=== PATIENT | female | born 1970 | race Caucasian/White ===

== ENCOUNTER 2017-09-26 08:11 | Day surgery (SDC) | payer OTHER ==
[~2017-09-26 08:11] MED LIST: CEFAZOLIN 1 GM/50 ML (PMX) 50 ML IVPB; SOD CHLORIDE 0.9% 1,000 ML IV; SUCCINYLCHOLINE CHLORIDE 100 MG/5 ML SYG IV
[2017-09-26] MEDS ORDERED: LIDOCAINE 1% (MPF) 30 ML INJ (11:58)
[2017-09-26] MEDS ORDERED: BUPIVACAINE 0.25%/EPI (SDV) 30 ML INJ (11:58)
[2017-09-26] MEDS ORDERED: ALBUTEROL 0.083% (NEB) 2.5 MG/3 ML AMP (12:40)
[2017-09-26] MEDS ORDERED: MIDAZOLAM 1 MG/ML 2 ML INJ (12:40)
[2017-09-26] MEDS ORDERED: ROCURONIUM 50 MG INJ (12:40)
[2017-09-26] MEDS ORDERED: PROPOFOL 20 ML (12:40)
[2017-09-26] MEDS ORDERED: LIDOCAINE 1% (MDV) 20 ML INJ ×2 (12:40→12:46)
[2017-09-26] MEDS ORDERED: DEXAMETHASONE 4 MG/ML 1 ML INJ ×2 (12:45→13:20)
[2017-09-26] MEDS ORDERED: ROPIVACAINE 0.2% 20 ML VIAL (12:45)
[2017-09-26] MEDS ORDERED: ACETAMINOPHEN 1000MG/100ML IV 0 ML (13:19)
[2017-09-26] MEDS ORDERED: ONDANSETRON 4 MG INJ ×2 (13:20→14:36)
[2017-09-26] MEDS ORDERED: FAMOTIDINE 20 MG INJ (13:20)
[2017-09-26] MEDS ORDERED: SUGAMMADEX SODIUM 200 MG/2 ML VIAL IV (13:59)
[2017-09-26] MEDS: HYDROCODONE/APAP (5/325) TAB PO (14:40)
[2017-09-26] MEDS ORDERED: DIPHENHYDRAMINE 50 MG INJ IV (15:00)
[2017-09-26] MEDS: HYDROmorphONE 0.5 MG/0.5 ML SYG IV (15:30)
== END 2017-09-26 17:15 | disposition home or self-care (01) ==
LOC: SDS 08:11
DX: K81.1 Chronic cholecystitis (principal); J45.909 Unspecified asthma, uncomplicated
CPT/HCPCS: 47562; 84703; 88304

== ENCOUNTER 2017-09-29 18:29 | Emergency (ER) | payer OTHER ==
[2017-09-29] MEDS: ONDANSETRON 4 MG INJ IV (20:17)
[2017-09-29] MEDS: DIPHENHYDRAMINE 50 MG INJ IV (20:18)
[2017-09-29] MEDS: METOCLOPRAMIDE 10 MG INJ IV (20:18)
[2017-09-29] MEDS: SOD CHLORIDE 0.9% 1,000 ML IV ×2 (20:18→21:36)
[2017-09-29 20:28] LABS: ADD MAN DIFF? NO
[2017-09-29 20:29] LABS: BASOPHIL # 0.1 10^3/ul (0.0-0.1); BASOPHILS % 0.3 % (0.0-2.0); EOSINOPHILS # 0.2 10^3/ul (0.0-0.5); EOSINOPHILS % 1.2 % (0.0-7.0); HEMATOCRIT 39.8 % (37.0-47.0); HEMOGLOBIN 13.4 g/dl (12.0-16.0); LYMPHOCYTES % 12.2 % (15.0-51.0); MEAN CORPUSCULAR HEMOGLOBIN 28.5 pg (29.0-33.0); MEAN CORPUSCULAR HGB CONC 33.7 g/dl (32.0-37.0); MEAN CORPUSCULAR VOLUME 84.7 fl (82.0-101.0); MEAN PLATELET VOLUME 8.5 fl (7.4-10.4); MONOCYTE # 0.7 10^3/ul (0.3-0.9); MONOCYTES % 4.6 % (0.0-11.0); NEUTROPHIL # 13.1 10^3/ul (1.6-7.5); NEUTROPHILS % 81.1 % (39.0-77.0); PLATELET COUNT 373 10^3/UL (140-415)
[2017-09-29 20:29] LABS: WHITE BLOOD COUNT 16.2 10^3/ul (4.8-10.8)
[2017-09-29 20:46] LABS: ALANINE AMINOTRANSFERASE 52 IU/L (13-69); ALBUMIN 3.8 g/dl (3.3-4.9); ALBUMIN/GLOBULIN RATIO 1.05; ALKALINE PHOSPHATASE 77 IU/L (42-121); ANION GAP 15 (8-16); ASPARTATE AMINO TRANSFERASE 34 IU/L (15-46); BILIRUBIN,INDIRECT 0.4 mg/dl (0-1.1); BILIRUBIN,TOTAL 0.4 mg/dl (0.2-1.3); BLOOD UREA NITROGEN 22 mg/dl (7-20); CALCIUM 8.8 mg/dl (8.4-10.2); CARBON DIOXIDE 25 mmol/L (21-31); CHLORIDE 100 mmol/L (97-110); CREATININE 0.94 mg/dl (0.44-1.00); GLUCOSE 121 mg/dl (70-220); LIPASE 193 U/L (23-300); POTASSIUM 3.4 mmol/L (3.5-5.1); SODIUM 137 mmol/L (135-144); TOTAL PROTEIN 7.4 g/dl (6.1-8.1)
[2017-09-29] MEDS ORDERED: SODIUM CHLORIDE 0.9% 1L BAG IV* (21:21)
[2017-09-29 21:33] LABS: ADD UMIC YES; UR ASCORBIC ACID NEGATIVE (NEGATIVE); UR BACTERIA FEW /HPF (NONE SEEN); UR BILIRUBIN (Dip) NEGATIVE (NEGATIVE); UR BLOOD (Dip) 1+ mg/dL (NEGATIVE); UR CLARITY SLIGHTLY CLOUDY (CLEAR); UR COLOR STRAW (YELLOW); UR GLUCOSE (Dip) NEGATIVE (NEGATIVE); UR KETONES (Dip) NEGATIVE (NEGATIVE); UR LEUKOCYTE ESTERASE (Dip) 3+ Leu/ul (NEGATIVE); UR NITRITE (Dip) POSITIVE (NEGATIVE); UR RBC 1 /HPF (0-5); UR SPECIFIC GRAVITY (Dip) 1.005 (1.003-1.030); UR TOTAL PROTEIN (Dip) NEGATIVE (NEGATIVE); UR UROBILINOGEN (Dip) NEGATIVE (NEGATIVE); UR WBC 26 /HPF (0-5)
[2017-09-29 22:26] LABS: LACTIC ACID 1.6 mmol/L (0.5-2.0)
[2017-09-29] MEDS: CEFTRIAXONE 1 GM/50 ML (PMX) 50 ML IVPB (22:48)
[2017-09-30] MEDS: IOHEXOL 300MG/ML 150 ML BTL (00:10)
[2017-09-30] MEDS: SOD CHLORIDE 0.9% 100 ML (00:10)
[2017-09-30] MEDS: BARIUM SULF 2% 450 ML BTL (BERRY SMOOTHIE) PO (00:20)
== END 2017-09-30 05:14 | disposition home or self-care (01) ==
LOC: E/R 09-30 05:14
DX: N30.00 Acute cystitis without hematuria (principal); J45.909 Unspecified asthma, uncomplicated; Z85.3 Personal history of malignant neoplasm of breast; Z90.49 Acquired absence of other specified parts of digestive tract
CPT/HCPCS: 36415; 71045; 71275; 74177; 76705; 80053; 81001; 83605; 83690; 85025; 87040; 87086; 96361; 96365; 96375; 99285-25